=== PATIENT | female | born 1960 | race Caucasian/White ===

== ENCOUNTER 2017-03-21 03:01 | Observation (INO) | payer OTHER ==
[2017-03-21] VITALS (12 sets, daily range): BP systolic 97–138; BP diastolic 53–856; PULSE 50–72; TEMP 97.9–98.6
[~2017-03-21] VITALS: Ht 172.7 cm; Wt 71.4 kg
[2017-03-21] MEDS ORDERED: VOLTAREN 75 DR75 MG PO (04:27)
[2017-03-21] MEDS ORDERED: DUREZOL 5 ML5 ML (04:27)
[2017-03-21] MEDS ORDERED: ESTROPIPATE PO (04:28)
[2017-03-21 06:38] LABS: BASO % 0.5 % (0.0-2.0); EOS % 0.5 % (0-4.0); GRAN # 4.3 (1.4-6.5); GRAN % 68.3 % (42.2-75.2); LYMPH # 1.4 (1.2-3.4); LYMPH % 22.1 % (20.0-51.0); MEAN CELL VOLUME 90 fl (80.0-100.0); MEAN CORPUSCULAR HGB CONC 33 g/dl (33.0-37.0); MONO # 0.5 (0.1-0.6); MONO % 8.4 % (1.7-9.3); PLATELET COUNT 274 K/mm3 (130-400); RED BLOOD COUNT 3.81 M/mm3 (4.10-5.30); REDCELL DISTRIBUTION WIDTH-CV 12.8 % (11.5-14.5); WHITE BLOOD COUNT 6.2 K/mm3 (4.8-10.8)
[2017-03-21 06:40] LABS: HEMATOCRIT 34.1 % (37.0-47.0); HEMOGLOBIN 11.4 g/dl (12.5-16.0); MEAN CORPUSCULAR HEMOGLOBIN 30 pg (27.0-31.0)
[2017-03-21 06:42] LABS: INR 0.9 (0.8-3.0); PROTHROMBIN TIME 10.4 SECONDS (9.7-12.8)
[2017-03-21 06:45] LABS: CALCIUM 8.5 mg/dL (8.4-10.2); CREATININE, serum 0.73 mg/dL (0.52-1.25)
[2017-03-22] VITALS (11 sets, daily range): BP systolic 96–120; BP diastolic 55–72; PULSE 64–96; TEMP 98.2–98.5
[2017-03-22] MEDS ORDERED: PERCOCET 325 MG1 TA2 PO (13:24)
[2017-03-22] MEDS ORDERED: MOTRIN 600600 MG/TAB PO (13:24)
[2017-03-22] MEDS ORDERED: COLACE 100100 MG/CAP PO (13:25)
== END 2017-03-22 20:30 | disposition home or self-care (01) ==
LOC: SURG 03:01
PROVIDERS: Nurse Practitioner Family
DX: K80.10 Calculus of gallbladder with chronic cholecystitis without obstruction (principal); Z85.41 Personal history of malignant neoplasm of cervix uteri; R51 Headache; M19.90 Unspecified osteoarthritis, unspecified site
CPT/HCPCS: 99222-AI; 99232-AI; C1769; G0378; J0360; J0690; J1100; J1885; J2060; J2270; J2405; J2543; J2704; J2710; J2765; J3010; J7030; J7050; J7120; Q9967

== ENCOUNTER → 2024-03-05 | Outpatient (CLI) | payer OTHER ==
[~2024-03-05] MED LIST: COLACE 100100 MG/CAP PO; DUREZOL 5 ML5 ML; ESTROPIPATE PO; MOTRIN 600600 MG/TAB PO; PERCOCET 325 MG1 TA2 PO; VOLTAREN 75 DR75 MG PO
== END ==
LOC: COL.RAD 08:39
DX: M25.562 Pain in left knee (principal); Z96.652 Presence of left artificial knee joint
CPT/HCPCS: A9503-JZ